=== PATIENT | female | born 1940 | race Two or more races ===

== ENCOUNTER 2017-05-05 15:01 | Inpatient (IN) | payer MEDICARE ==
[~2017-05-05] VITALS: Ht 157.5 cm; Wt 48.5 kg
[~2017-05-05 15:01] MED LIST: ALPRAZOLAM0.5 MG PO; AMBIEN5 MG ORAL; ATENOLOL25 MG ORAL; HARVONI 90-4001 EACH PO; OMEPRAZOLE40 M1 ORAL; TENORMIN100 MG ORAL
[2017-05-05] MEDS ORDERED: Tubing IV Cassette IV ONE (15:28)
--- NOTE | 2017-05-05 15:38 | Emergency Room Report ---
History of Present Illness General Chief Complaint: Abdominal Pain Source: Patient Present Illness HPI This patient is brought in at the request of her daughter. The patient states that last night she developed upper abdominal pain and had an episode of vomiting. She states that the symptoms have resolved. She currently has no complaints. She denies abdominal pain at this time. She states she has had normal bowel movements. She denies dysuria or hematuria. She denies fever or chills. She has not had nausea or vomiting today. She denies chest pain or shortness of breath. She has no other complaints. Allergies: Coded Allergies: No Known Allergies (Unverified , 04/07/16) Patient History Past Medical History: see triage record, HTN, other - Parkinsons Social History: Denies: alcohol use, drug use, smoking Now: No Reviewed Nursing Documentation: PMH: Agreed, PSxH: Agreed Nursing Documentation-PMH Hx Cardiac Problems: Yes - Hep. C Hx Hypertension: Yes Hx Pacemaker: No Hx Cancer: No Hx Gastrointestinal Problems: Yes Hx Neurological Problems: No Hx Neurologic Surgery: No Hx Brain Shunt: No Review of Systems All Other Systems: negative except mentioned in HPI Physical Exam Vital Signs Date Time Temp Pulse Resp B/P Pulse Ox O2 Delivery O2 Flow Rate FiO2 05/05/17 15:03 97.3 74 15 120/62 96 Room Air Sp02 EP Interpretation: reviewed, normal General Appearance: no apparent distress, alert, GCS 15, non-toxic Head: normocephalic, atraumatic Eyes: bilateral eye PERRL, bilateral eye normal inspection ENT: hearing grossly normal, normal pharynx, no angioedema, normal voice Neck: full range of motion, supple/symm/no masses Respiratory: chest non-tender, lungs clear, normal breath sounds, speaking full sentences Cardiovascular #1: regular rate, rhythm, no edema Gastrointestinal: normal bowel sounds, non tender, soft, non-distended, no guarding, no rebound Rectal: deferred Musculoskeletal: back normal, gait/station normal, normal range of motion, non- tender Neurologic: alert, oriented x3, responsive, motor strength/tone normal, sensory intact, speech normal Psychiatric: judgement/insight normal, memory normal, mood/affect normal, no suicidal/homicidal ideation Skin: normal color, no rash, warm/dry, well hydrated Medical Decision Making Diagnostic Impression: Primary Impression: Small bowel obstruction ER Course This patient presents with abdominal pain and episode of vomiting last night. Apparently, the patient hadn't eaten anything today and had resolution of her symptoms. However, I did obtain a CT of the abdomen and pelvis and her findings concerning for small bowel obstruction. There was some question that this could be an enteritis. The patient did have a small bowel obstruction 2 years ago and had to undergo surgical resection of the bowel. About a year ago she had a repeat episode that was treated conservatively. The son reports that she did have a colonoscopy since that time that was unremarkable. Regardless, an NG tube was placed to intermittent suction and the patient is admitted for further evaluation and treatment. Labs Test 05/05/17 15:20 05/05/17 15:30 Urine Color Pale yellow Urine Appearance Clear Urine pH 6 (4.5-8.0) Urine Specific [place] 1.010 (1.005-1.035) Urine Protein Negative (NEGATIVE) Urine Glucose (UA) Negative (NEGATIVE) Urine Ketones Negative (NEGATIVE) Urine Occult Blood 1+ (NEGATIVE) Urine Nitrite Negative (NEGATIVE) Urine Bilirubin Negative (NEGATIVE) Urine Urobilinogen Normal MG/DL (0.0-1.0) Urine Leukocyte Esterase 1+ (NEGATIVE) Urine RBC 2-4 /HPF (0 - 2) Urine WBC 0-2 /HPF (0 - 2) Urine Squamous Epithelial Cells Few /LPF (NONE/OCC) Urine Bacteria Few /HPF (NONE) White Blood Count 7.6 K/UL (4.8-10.8) Red Blood Count 4.33 M/UL (4.20-5.40) Hemoglobin 13.1 G/DL (12.0-16.0) Hematocrit 39.7 % (37.0-47.0) Mean Corpuscular Volume 92 FL (80-99) Mean Corpuscular Hemoglobin 30.2 PG (27.0-31.0) Mean Corpuscular Hemoglobin Concent 32.9 G/DL (32.0-36.0) Red Cell Distribution Width 11.8 % (11.6-14.8) Platelet Count 184 K/UL (150-450) Mean Platelet Volume 7.9 FL (6.5-10.1) Neutrophils (%) (Auto) 65.5 % (45.0-75.0) Lymphocytes (%) (Auto) 26.3 % (20.0-45.0) Monocytes (%) (Auto) 6.6 % (1.0-10.0) Eosinophils (%) (Auto) 0.9 % (0.0-3.0) Basophils (%) (Auto) 0.6 % (0.0-2.0) Sodium Level 136 mEQ/L (135-145) Potassium Level 4.0 mEQ/L (3.4-4.9) Chloride Level 96 mEQ/L (98-107) Carbon Dioxide Level 26 mEQ/L (20-30) Anion Gap 14 (5-15) Blood Urea Nitrogen 16 mg/dL (7-23) Creatinine 0.8 mg/dL (0.5-0.9) Estimat Glomerular Filtration Rate mL/min (>60) Glucose Level 114 mg/dL (74-106) Calcium Level 9.3 mg/dL (8.6-10.2) Total Bilirubin 0.4 mg/dL (0.0-1.2) Aspartate Amino Transf (AST/SGOT) 24 U/L (5-40) Alanine Aminotransferase (ALT/SGPT) 12 U/L (3-33) Alkaline Phosphatase 52 U/L (35-104) Troponin I < 0.30 ng/mL (<=0.30) Total Protein 7.7 g/dL (6.6-8.7) Albumin 4.5 g/dL (3.5-5.2) Globulin 3.2 g/dL Albumin/Globulin Ratio 1.4 (1.0-2.7) Lipase 14 U/L (< 60) EKG Diagnostic Results Rate: normal Rhythm: NSR ST Segments: no acute changes Rhythm Strip Diag. Results EP Interpretation: yes Rate: 70's Rhythm: NSR, no PVC's, no ectopy CT/MRI/US Diagnostic Results CT/MRI/US Diagnostic Results : Imaging Test Ordered: CT abd/pelvis Impression Impression: Focal dilated segment of small bowel in the left lower quadrant. Normal caliber distal small bowel. Findings most likely represents small bowel obstruction, possibly secondary to effusion. Segmental nature could also indicate a closed loop obstruction such as an internal hernia, although there are no other features to suggest is. However, given the associated small bowel wall thickening, findings could also represent focal area of enteritis. Correlate with clinical findings, consider followup abdominal radiographs as clinically indicated. Note that the extent and degree of small bowel dilatation is less than was demonstrated on the study of one year prior Trace free fluid in the pelvis. Not physiologic in a postmenopausal female, possibly related to the above Other findings as noted, including focal area of fatty infiltration of the liver , small left inguinal hernia, equivocal diverticulosis, posterior dependent pulmonary parenchymal atelectasis Last Vital Signs Date Time Temp Pulse Resp B/P Pulse Ox O2 Delivery O2 Flow Rate FiO2 05/05/17 15:03 97.3 74 15 120/62 96 Room Air Disposition: ADMITTED INPATIENT Condition: Serious COLICEASAROLARRY D.O. May 05, 2017 15:38
[2017-05-05 15:45] LABS: APPEARANCE,URINE CLEAR; KETONES,URINE NEGATIVE (NEGATIVE); LEUKOCYTE ESTERASE ,URINE 1+ (NEGATIVE); NITRITE,URINE NEGATIVE (NEGATIVE); PH,URINE 6 (4.5-8.0); PROTEIN,URINE NEGATIVE (NEGATIVE); UROBILINOGEN,URINE NORMAL MG/DL (0.0-1.0)
[2017-05-05 15:57] LABS: TROPONIN I < 0.30 ng/mL (<=0.30)
[2017-05-05 16:00] LABS: ALANINE AMINOTRANSFERASE 12 U/L (3-33); ALBUMIN/GLOBULIN RATIO 1.4 (1.0-2.7); ANION GAP 14 (5-15); ASPARTATE AMINO TRANSFERASE 24 U/L (5-40); CALCIUM 9.3 mg/dL (8.6-10.2); CARBON DIOXIDE 26 mEQ/L (20-30); CHLORIDE 96 mEQ/L (98-107); CREATININE 0.8 mg/dL (0.5-0.9); HEMOLYSIS 5; LIPASE 14 U/L (< 60); SODIUM 136 mEQ/L (135-145); TOTAL PROTEIN 7.7 g/dL (6.6-8.7)
[2017-05-05 16:16] LABS: BACTERIA,URINE FEW /HPF; SQUAMOUS EPITHELIAL CELL,UR FEW /LPF (NONE/OCC); WBC,URINE 0-2 /HPF (0 - 2)
[2017-05-05 16:55] LABS: BASOPHILS % (AUTO) 0.6 % (0.0-2.0); EOSINOPHILS % (AUTO) 0.9 % (0.0-3.0); LYMPHOCYTES % (AUTO) 26.3 % (20.0-45.0); MEAN CORPUSCULAR HEMOGLOBIN 30.2 PG (27.0-31.0); MEAN CORPUSCULAR HGB CONC 32.9 G/DL (32.0-36.0); MEAN CORPUSCULAR VOLUME 92 FL (80-99); MEAN PLATELET VOLUME 7.9 FL (6.5-10.1); MONOCYTES % (AUTO) 6.6 % (1.0-10.0); NEUTROPHILS % (AUTO) 65.5 % (45.0-75.0); PLATELET COUNT 184 K/UL (150-450); RED BLOOD COUNT 4.33 M/UL (4.20-5.40); RED CELL DISTRIBUTION WIDTH 11.8 % (11.6-14.8); WHITE BLOOD COUNT 7.6 K/UL (4.8-10.8)
[2017-05-05 17:00] VITALS: BP 161/68
--- NOTE | 2017-05-05 17:00 | Diagnostic Imaging Report ---
Clinical Indication: Abdominal pain Technique: No oral contrast utilized, per emergency room physician request IV administration nonionic contrast. Venous phase spiral acquisition obtained through the abdomen and pelvis. Multiplanar reconstructions were generated. Total dose length product 710 mGycm. CTDIvol(s) 15 mGy. Dose reduction achieved using automated exposure control Comparison: 04/07/2016 Findings: Lack of enteric contrast limits assessment of the GI tract. Small fat-containing left inguinal hernia is again demonstrated. Small amount of fluid is again demonstrated within the pelvis. There are equivocal scattered colonic diverticula. No evidence diverticulitis. There is a short segment of distended fluid-filled small bowel loops in the left lower quadrant. Transition to normal caliber distal small bowel is either in the left lower quadrant or lower midpelvis. There is mild wall thickening of the affected loops. The appendix is normal. No free intraperitoneal air. Distal esophagus, stomach, duodenum are unremarkable. The gallbladder is unremarkable. There is ectasia of the extrahepatic bile ducts again demonstrated, but with no downstream obstructive lesion evident. The liver demonstrate some focal fatty change in the usual location adjacent to the fissure for the ligamentum teres, is otherwise unremarkable. The pancreas, spleen, adrenals, kidneys are unremarkable. No mesenteric or retroperitoneal mass or adenopathy. The bladder is distended. No pelvic mass or adenopathy. The included lung bases are clear except for minimal posterior dependent atelectatic change. The bones are unremarkable. When compared to the previous study, the degree and extent of small bowel distention is decreased Impression: Focal dilated segment of small bowel in the left lower quadrant. Normal caliber distal small bowel. Findings most likely represents small bowel obstruction, possibly secondary to effusion. Segmental nature could also indicate a closed loop obstruction such as an internal hernia, although there are no other features to suggest is. However, given the associated small bowel wall thickening, findings could also represent focal area of enteritis. Correlate with clinical findings, consider followup abdominal radiographs as clinically indicated. Note that the extent and degree of small bowel dilatation is less than was demonstrated on the study of one year prior Trace free fluid in the pelvis. Not physiologic in a postmenopausal female, possibly related to the above Other findings as noted, including focal area of fatty infiltration of the liver, small left inguinal hernia, equivocal diverticulosis, posterior dependent pulmonary parenchymal atelectasis The CT scanner at [facility] is accredited by the [employer] and the scans are performed using protocols designed to limit radiation exposure to as low as reasonably achievable to attain images of sufficient resolution adequate for diagnostic evaluation.
[2017-05-05 18:00] VITALS: BP 142/65
[2017-05-05] MEDS ORDERED: VITAMIN B-12500 MCG ORAL (18:37)
[2017-05-05] MEDS ORDERED: SYMMETREL100 MG GT (19:44)
[2017-05-05 20:00] VITALS: BP 156/73
[2017-05-05 21:39] VITALS: BP 151/79
[2017-05-06] VITALS: BP 165/90
[2017-05-06] MEDS: D5NS 1,000 ML IV SCH ×2 (00:13→14:55)
[2017-05-06] MEDS: HYDROmorphone 1mg/ml Carpuject IVP PRN ×3 (00:15→17:49)
[2017-05-06 08:21] VITALS: BP 152/74
[2017-05-06 09:33] LABS: MEAN CORPUSCULAR HEMOGLOBIN 29.2 PG (27.0-31.0); MEAN CORPUSCULAR HGB CONC 32.7 G/DL (32.0-36.0); MEAN CORPUSCULAR VOLUME 90 FL (80-99); MEAN PLATELET VOLUME 8.5 FL (6.5-10.1); PLATELET COUNT 189 K/UL (150-450); RED BLOOD COUNT 4.91 M/UL (4.20-5.40); RED CELL DISTRIBUTION WIDTH 11.4 % (11.6-14.8); WHITE BLOOD COUNT 6.7 K/UL (4.8-10.8)
[2017-05-06 09:47] LABS: ANION GAP 15 (5-15); CALCIUM 9.1 mg/dL (8.6-10.2); CARBON DIOXIDE 24 mEQ/L (20-30); CHLORIDE 98 mEQ/L (98-107); CREATININE 0.6 mg/dL (0.5-0.9); HEMOLYSIS 2; POTASSIUM 3.6 mEQ/L (3.4-4.9); SODIUM 137 mEQ/L (135-145)
[2017-05-06] MEDS: ALPRAZolam 0.25mg tab ORAL SCH ×3 (10:00→18:52)
--- NOTE | 2017-05-06 10:21 | Diagnostic Imaging Report ---
Indications: Abdominal pain. Technique: AP view of the abdomen Findings: Comparison: 04/09/2016. Bowel gas pattern remains unremarkable. No abnormal calcific or soft tissue densities are demonstrated. Small osteophytes again noted at lumbar disc margins. Visualized skeletal structures remain otherwise unremarkable. Distal end of nasogastric tube overlies and is presumably within the stomach. IMPRESSION: No evidence of acute abdominopelvic disease, unchanged Interval nasogastric tube placement, in stomach.
[2017-05-06 10:31] LABS: BAND NEUTROPHILS % (MANUAL) 0 % (0-8); BASOPHILS % (MANUAL) 0 % (0-2); EOSINOPHILS % (MANUAL) 0 % (0-3); LYMPHOCYTES % (MANUAL) 13 % (20-45); NEUTROPHILS % (MANUAL) 84 % (45-75); PLATELET ESTIMATE ADEQUATE; PLATELET MORPHOLOGY NORMAL; TOTAL CELLS COUNTED 100
[2017-05-06 11:17] VITALS: BP 166/83
[2017-05-06] MEDS: Atenolol 25mg tab ORAL SCH (11:24)
[2017-05-06 15:53] VITALS: BP 168/72
--- NOTE | 2017-05-06 16:45 | History and Physical Report ---
DATE OF ADMISSION: 05/05/2017 HISTORY OF PRESENT ILLNESS: This is a 77-year-old female, who came to the hospital with abdominal pain. She also had emesis. The patient states she has a previous history of bowel obstruction in the past, it resolved spontaneously. She was seen and admitted through the emergency room. An NG tube was placed. Imaging studies showed evidence of a partial small bowel obstruction. The patient had reported she was having small formed stools and also was passing gas. PAST MEDICAL HISTORY: Notable for hypertension. She has had previous abdominal surgery. At this time, she is unable to tell me the nature of her previous surgery. Per review of old records, I note the patient was admitted to this hospital in March of 2016. At this point, she was noted to have evidence of a previous laparotomy sometime back in . She was seen by Dr. Noriega, the patient resolved with conservative management and was discharged. The patient's past history is otherwise unremarkable. She has a history of hypertension. MEDICATIONS: Summarized in chart. ALLERGIES: None. REVIEW OF SYSTEMS: The patient denies any headaches, hematemesis, melena, or hematochezia. PHYSICAL EXAMINATION: GENERAL: Reveals a 77-year-old female. HEENT: Unremarkable. CHEST: Shows clear breath sounds bilaterally. ABDOMEN: Soft. There is a midline laparotomy scar. Abdomen not distended. NG tube is in place. EXTREMITIES: There is no edema. NEUROLOGIC: Nonfocal. VITAL SIGNS: Blood pressure 150/70, heart rate is 74, respirations are 14, she is afebrile, and O2 saturation 100% on room air. LABORATORY AND DIAGNOSTIC DATA: His laboratory testing shows a normal CBC and BMP. Urinalysis is negative. Imaging studies obtained overnight. Abdominal and pelvis CT was done, which showed that she has small fat containing left inguinal hernia. There was a noted focal dilated segment of small bowel in the left lower quadrant. IMPRESSION: 1. Partial small bowel obstruction. 2. Previous laparotomy. 3. Hypertension. DISCUSSION: Admit to the hospital. We will consult general surgery as well as Gastroenterology. Keep NPO at this time. I will discontinue the NG tube. Start clear liquid diet. Continue IV fluids. DVT prophylaxis. We will follow carefully. Dioni Crowley M.D. DR: Rick JOB#: [id number] CC:
--- NOTE | 2017-05-06 17:27 | GI Initial Consult Note ---
RadhaMartha Hidalgooi N.P. 05/06/17 1727: History of Present Illness General Date patient seen: May 06, 2017 Time patient seen: 14:00 Reason for Hospitalization: Abdominal Pain Referring physician: KANDACE PELAYO Reason for Consultation: SBO Present Illness HPI This patient is brought in at the request of her daughter. The patient states that last night she developed upper abdominal pain and had an episode of vomiting. She states that the symptoms have resolved. She currently has no complaints. She denies abdominal pain at this time. She states she has had normal bowel movements. She denies dysuria or hematuria. She denies fever or chills. She has not had nausea or vomiting today. She denies chest pain or shortness of breath. She has no other complaints. GI CONSULT. HPI as noted. GI consulted for r/o SBO. Pt presents today with possible SBO shown on recent CT, see full report below. Patient is currently on clear liquid diet. Daughter at bedside stating that the patient has been passing gas. The patient has a history of abdominal surgeries for SBO revision with noted abdominal scar. CBC, LFTs unremarkable. Lipase, troponin negative. Unknown history of colonoscopy. Procedure: CT Abdomen Pelvis w/Contrast Clinical Indication: Abdominal pain Impression: Focal dilated segment of small bowel in the left lower quadrant. Normal caliber distal small bowel. Findings most likely represents small bowel obstruction, possibly secondary to effusion. Segmental nature could also indicate a closed loop obstruction such as an internal hernia, although there are no other features to suggest is. However, given the associated small bowel wall thickening, findings could also represent focal area of enteritis. Correlate with clinical findings, consider followup abdominal radiographs as clinically indicated. Note that the extent and degree of small bowel dilatation is less than was demonstrated on the study of one year prior Trace free fluid in the pelvis. Not physiologic in a postmenopausal female, possibly related to the above Other findings as noted, including focal area of fatty infiltration of the liver , small left inguinal hernia, equivocal diverticulosis, posterior dependent pulmonary parenchymal atelectasis. Home Meds Reported Medications Amantadine HCl (Amantadine) 100 Mg Capsule, 100 MG GT TWICE A DAY, CAP 05/05/17 Cyanocobalamin (Vitamin B-12)* (VITAMIN B-12*) 500 Mcg Tablet, 500 MCG ORAL DAILY 05/05/17 Atenolol* (TENORMIN*) 25 Mg Tablet, 25 MG ORAL DAILY, TAB 10/07/16 Alprazolam* (XANAX*) 0.5 Mg Tablet, 0.5 MG PO BEDTIME Y for For Anxiety, TAB 04/10/16 Omeprazole (OMEPRAZOLE) 40 Mg Capsule.dr, 40 MG ORAL DAILY, CAP 04/07/16 Discontinued Reported Medications Ledipasvir/Sofosbuvir (Harvoni 90-400 mg Tablet) 1 Each Tablet, 1 EACH PO, TAB 10/07/16 Zolpidem Tartrate* (AMBIEN*) 5 Mg Tablet, 5 MG ORAL BEDTIME Y for Insomnia, TAB 04/07/16 Atenolol (TENORMIN) 100 Mg Tablet, 50 MG ORAL DAILY, TAB 04/07/16 Med list reviewed/reconciled: Yes Allergies: Coded Allergies: No Known Allergies (Unverified , 04/07/16) Patient History History Provided By: Patient PMH Narrative Past Medical History: see triage record, HTN, other - Parkinsons Social History: Denies: alcohol use, drug use, smoking Now: No Reviewed Nursing Documentation: PMH: Agreed, PSxH: Agreed Nursing Documentation-PMH Hx Cardiac Problems: Yes - Hep. C Hx Hypertension: Yes Hx Pacemaker: No Hx Cancer: No Hx Gastrointestinal Problems: Yes Hx Neurological Problems: No Hx Neurologic Surgery: No Hx Brain Shunt: No Review of Systems All Other Systems: negative except mentioned in HPI Physical Exam Vital Signs Date Time Temp Pulse Resp B/P Pulse Ox O2 Delivery O2 Flow Rate FiO2 05/05/17 15:03 97.3 74 15 120/62 96 Room Air Sp02 EP Interpretation: reviewed Labs Laboratory Tests Test 05/06/17 09:15 White Blood Count 6.7 K/UL (4.8-10.8) Red Blood Count 4.91 M/UL (4.20-5.40) Hemoglobin 14.4 G/DL (12.0-16.0) Hematocrit 44.0 % (37.0-47.0) Mean Corpuscular Volume 90 FL (80-99) Mean Corpuscular Hemoglobin 29.2 PG (27.0-31.0) Mean Corpuscular Hemoglobin Concent 32.7 G/DL (32.0-36.0) Red Cell Distribution Width 11.4 % (11.6-14.8) L Platelet Count 189 K/UL (150-450) Mean Platelet Volume 8.5 FL (6.5-10.1) Neutrophils (%) (Auto) % (45.0-75.0) Lymphocytes (%) (Auto) % (20.0-45.0) Monocytes (%) (Auto) % (1.0-10.0) Eosinophils (%) (Auto) % (0.0-3.0) Basophils (%) (Auto) % (0.0-2.0) Differential Total Cells Counted 100 Neutrophils % (Manual) 84 % (45-75) H Lymphocytes % (Manual) 13 % (20-45) L Monocytes % (Manual) 3 % (1-10) Eosinophils % (Manual) 0 % (0-3) Basophils % (Manual) 0 % (0-2) Band Neutrophils 0 % (0-8) Platelet Estimate Adequate Platelet Morphology Normal Red Blood Cell Morphology Normal Sodium Level 137 mEQ/L (135-145) Potassium Level 3.6 mEQ/L (3.4-4.9) Chloride Level 98 mEQ/L (98-107) Carbon Dioxide Level 24 mEQ/L (20-30) Anion Gap 15 (5-15) Blood Urea Nitrogen 8 mg/dL (7-23) Creatinine 0.6 mg/dL (0.5-0.9) Estimat Glomerular Filtration Rate mL/min (>60) Glucose Level 156 mg/dL (74-106) H Calcium Level 9.1 mg/dL (8.6-10.2) General Appearance: well appearing, no apparent distress, alert Head: normocephalic EENT: normal ENT inspection Neck: supple Respiratory: normal breath sounds, no respiratory distress Cardiovascular: normal rate Gastrointestinal: normal inspection, non tender, soft, normal bowel sounds Rectal: deferred Genitourinary: no CVA tenderness Musculoskeletal: back normal Neurologic: normal inspection, alert, responsive Psychiatric: normal inspection, judgement/insight normal, memory normal Skin: normal inspection, normal color, no rash, warm/dry Lymphatic: normal inspection, no adenopathy Current Medications Current Medications Medications (Trade) Dose Ordered Sig/Leilani Route PRN Reason Start Time Stop Time Status Last Admin Dose Admin Acetaminophen (Tylenol) 650 mg Q4H PRN ORAL Mild Pain/Temp > 100.5 05/06/17 10:00 06/05/17 09:59 Alprazolam (Xanax) 0.25 mg THREE TIMES A DAY ORAL 05/06/17 10:00 05/13/17 09:59 05/06/17 14:47 Atenolol (Tenormin) 25 mg DAILY ORAL 05/06/17 11:00 06/05/17 10:59 05/06/17 11:24 Clonidine HCl (Catapres) 0.1 mg Q6H PRN ORAL For High Blood Pressure 05/06/17 14:00 06/05/17 13:59 05/06/17 14:15 Dextrose/Sodium Chloride (D5ns) 1,000 ml @ 75 mls/hr [id number] IV 05/05/17 23:15 06/04/17 23:14 05/06/17 14:55 Hydromorphone HCl 1 mg 1 mg Q4H PRN IVP For Pain 05/05/17 23:15 05/12/17 23:14 05/06/17 11:29 GI: Plan Problems: (1) Hx of abdominal surgery (2) Small bowel obstruction (3) Abdominal pain (4) Dehydration Plan APCT reviewed >> possible SBO IVF hydration + electrolyte replacement maintain CLD, NPO if patient has persistent vomiting ordered SB follow through study NGT dc'd today, consider reinsertion if GI decompression necessary pain mgmt ordered CEA fu labs will consider colonoscopy recommend surgical consultation given possible SBO Discussed with Dr. Potter. Thank you for referring this patient, we will follow. ARA POTTER 05/07/17 1006: History of Present Illness General Reason for Hospitalization: Abdominal Pain Present Illness Home Meds Reported Medications Amantadine HCl (Amantadine) 100 Mg Capsule, 100 MG GT TWICE A DAY, CAP 05/05/17 Cyanocobalamin (Vitamin B-12)* (VITAMIN B-12*) 500 Mcg Tablet, 500 MCG ORAL DAILY 05/05/17 Atenolol* (TENORMIN*) 25 Mg Tablet, 25 MG ORAL DAILY, TAB 10/07/16 Alprazolam* (XANAX*) 0.5 Mg Tablet, 0.5 MG PO BEDTIME Y for For Anxiety, TAB 04/10/16 Omeprazole (OMEPRAZOLE) 40 Mg Capsule., 40 MG ORAL DAILY, CAP 04/07/16 Discontinued Reported Medications Ledipasvir/Sofosbuvir (Harvoni 90-400 mg Tablet) 1 Each Tablet, 1 EACH PO, TAB 10/07/16 Zolpidem Tartrate* (AMBIEN*) 5 Mg Tablet, 5 MG ORAL BEDTIME Y for Insomnia, TAB 04/07/16 Atenolol (TENORMIN) 100 Mg Tablet, 50 MG ORAL DAILY, TAB 04/07/16 Allergies: Coded Allergies: No Known Allergies (Unverified , 04/07/16) GI: Plan Plan The patient was seen and examined at bedside and all new and available data was reviewed in the patients chart. I agree with the above findings, impression and plan. (Patient seen earlier today. Signature stamp does not reflect patient encounter time.). -Martha Johnson MD, N.P. May 06, 2017 17:27 ARA POTTER May 07, 2017 10:06
--- NOTE | 2017-05-06 18:13 | Cardiology Report ---
APPROVED REPORT EKG Measurement Heart [id number] Normal sinus rhythm Normal ECG
[2017-05-06 18:45] VITALS: BP 132/72
[2017-05-06 20:00] VITALS: BP 147/85
[2017-05-07] VITALS: BP 126/72
[2017-05-07] MEDS: HYDROmorphone 1mg/ml Carpuject IVP PRN ×4 (00:57→15:47)
[2017-05-07] MEDS: D5NS 1,000 ML IV SCH ×2 (00:58→15:46)
[2017-05-07 04:00] VITALS: BP 136/78
[2017-05-07 06:38] LABS: BASOPHILS % (AUTO) 0.8 % (0.0-2.0); LYMPHOCYTES % (AUTO) 26.5 % (20.0-45.0); MEAN CORPUSCULAR HEMOGLOBIN 29.9 PG (27.0-31.0); MEAN CORPUSCULAR HGB CONC 33.4 G/DL (32.0-36.0); MEAN CORPUSCULAR VOLUME 89 FL (80-99); MEAN PLATELET VOLUME 8.6 FL (6.5-10.1); MONOCYTES % (AUTO) 7.9 % (1.0-10.0); NEUTROPHILS % (AUTO) 63.9 % (45.0-75.0); PLATELET COUNT 184 K/UL (150-450); RED CELL DISTRIBUTION WIDTH 11.7 % (11.6-14.8); WHITE BLOOD COUNT 7.3 K/UL (4.8-10.8)
[2017-05-07 06:54] LABS: ALANINE AMINOTRANSFERASE 10 U/L (3-33); ALBUMIN/GLOBULIN RATIO 1.3 (1.0-2.7); ANION GAP 11 (5-15); ASPARTATE AMINO TRANSFERASE 19 U/L (5-40); CALCIUM 8.4 mg/dL (8.6-10.2); CARBON DIOXIDE 26 mEQ/L (20-30); CHLORIDE 99 mEQ/L (98-107); CREATININE 0.5 mg/dL (0.5-0.9); HEMOLYSIS 5; MAGNESIUM 1.7 mg/dL (1.7-2.5); PHOSPHORUS 2.1 mg/dL (2.5-4.8); POTASSIUM 3.8 mEQ/L (3.4-4.9); SODIUM 136 mEQ/L (135-145); TOTAL PROTEIN 6.5 g/dL (6.6-8.7)
[2017-05-07 08:00] VITALS: BP 159/76
--- NOTE | 2017-05-07 08:20 | Pulmonology Progress Note ---
Assessment/Plan Assessment/Plan IMPRESSION: 1. Partial small bowel obstruction. 2. Previous laparotomy. 3. Hypertension. DISCUSSION: Gastroenterology consult noted. Keep NPO at this time. Await UGI series. Continue IV fluids. DVT prophylaxis. I will follow carefully. Subjective Interval Events: Tolerated clear liquids yesterday; no BM yet Constitutional: Reports: no symptoms HEENT: Repors: no symptoms Respiratory: Reports: no symptoms Cardiovascular: Reports: no symptoms Gastrointestinal/Abdominal: Reports: constipation Genitourinary: Reports: no symptoms Neurologic: Reports: no symptoms Allergies: Coded Allergies: No Known Allergies (Unverified , 04/07/16) Objective Last 24 Hour Vital Signs Date Time Temp Pulse Resp B/P Pulse Ox O2 Delivery O2 Flow Rate FiO2 05/07/17 04:00 98.8 69 20 136/78 96 Room Air 05/07/17 00:00 97.9 68 20 126/72 96 Room Air 05/06/17 20:00 96.6 67 20 147/85 99 Room Air 05/06/17 18:45 62 16 132/72 98 Room Air 05/06/17 15:53 97.0 73 16 168/72 99 Room Air 05/06/17 14:15 168/79 05/06/17 11:24 99 166/83 05/06/17 11:17 97.7 75 16 166/83 99 Room Air 05/06/17 08:21 98.2 71 14 152/74 100 Room Air Intake and Output 05/06/17 05/07/17 19:00 07:00 Intake Total 1900 ml 825 ml Balance 1900 ml 825 ml Intake Oral 1000 ml IV Total 900 ml 825 ml # Voids 4 1 General Appearance: no acute distress HEENT: normocephalic Respiratory/Chest: chest wall non-tender, lungs clear Cardiovascular: normal peripheral pulses, normal rate Abdomen: soft, non tender, no organomegaly, non distended, no mass Extremities: no cyanosis Laboratory Tests 05/06/17 09:15: White Blood Count 6.7, Red Blood Count 4.91, Hemoglobin 14.4, Hematocrit 44.0, Mean Corpuscular Volume 90, Mean Corpuscular Hemoglobin 29.2, Mean Corpuscular Hemoglobin Concent 32.7, Red Cell Distribution Width 11.4L, Platelet Count 189, Mean Platelet Volume 8.5, Neutrophils (%) (Auto) , Lymphocytes (%) (Auto) , Monocytes (%) (Auto) , Eosinophils (%) (Auto) , Basophils (%) (Auto) , Differential Total Cells Counted 100, Neutrophils % (Manual) 84H, Lymphocytes % (Manual) 13L, Monocytes % (Manual) 3, Eosinophils % (Manual) 0, Basophils % ( Manual) 0, Band Neutrophils 0, Platelet Estimate Adequate, Platelet Morphology Normal, Red Blood Cell Morphology Normal, Sodium Level 137, Potassium Level 3.6 , Chloride Level 98, Carbon Dioxide Level 24, Anion Gap 15, Blood Urea Nitrogen 8, Creatinine 0.6, Estimat Glomerular Filtration Rate , Glucose Level 156H, Calcium Level 9.1 05/07/17 05:10: White Blood Count 7.3, Red Blood Count 4.30, Hemoglobin 12.9, Hematocrit 38.4, Mean Corpuscular Volume 89, Mean Corpuscular Hemoglobin 29.9, Mean Corpuscular Hemoglobin Concent 33.4, Red Cell Distribution Width 11.7, Platelet Count 184, Mean Platelet Volume 8.6, Neutrophils (%) (Auto) 63.9, Lymphocytes (%) (Auto) 26.5, Monocytes (%) (Auto) 7.9, Eosinophils (%) (Auto) 1.0, Basophils (%) (Auto ) 0.8, Sodium Level 136, Potassium Level 3.8, Chloride Level 99, Carbon Dioxide Level 26, Anion Gap 11, Blood Urea Nitrogen 7, Creatinine 0.5, Estimat Glomerular Filtration Rate , Glucose Level 113H, Calcium Level 8.4L, Phosphorus Level 2.1L, Magnesium Level 1.7, Total Bilirubin 0.4, Aspartate Amino Transf ( AST/SGOT) 19, Alanine Aminotransferase (ALT/SGPT) 10, Alkaline Phosphatase 48, Total Protein 6.5L, Albumin 3.7, Globulin 2.8, Albumin/Globulin Ratio 1.3, Carcinoembryonic Antigen 1.2 Current Medications Medications (Trade) Dose Ordered Sig/Leilani Route PRN Reason Start Time Stop Time Status Last Admin Dose Admin Acetaminophen (Tylenol) 650 mg Q4H PRN ORAL Mild Pain/Temp > 100.5 05/06/17 10:00 06/05/17 09:59 Alprazolam (Xanax) 0.25 mg THREE TIMES A DAY ORAL 05/06/17 10:00 05/13/17 09:59 05/06/17 18:52 Atenolol (Tenormin) 25 mg DAILY ORAL 05/06/17 11:00 06/05/17 10:59 05/06/17 11:24 Clonidine HCl (Catapres) 0.1 mg Q6H PRN ORAL For High Blood Pressure 05/06/17 14:00 06/05/17 13:59 05/06/17 14:15 Dextrose/Sodium Chloride (D5ns) 1,000 ml @ 75 mls/hr [id number] IV 05/05/17 23:15 06/04/17 23:14 05/07/17 00:58 Hydromorphone HCl 1 mg 1 mg Q4H PRN IVP For Pain 05/05/17 23:15 05/12/17 23:14 05/07/17 05:37 Dioni Crowley MD May 07, 2017 08:20
[2017-05-07] MEDS: Atenolol 25mg tab ORAL SCH ×2 (09:00→11:28)
[2017-05-07] MEDS: ALPRAZolam 0.25mg tab ORAL SCH ×3 (09:00→18:44)
[2017-05-07 12:00] VITALS: BP 143/77
--- NOTE | 2017-05-07 12:00 | GI Progress Note ---
Assessment/Plan Problems: (1) Severe malnutrition ICD Codes: E43 - Unspecified severe protein-calorie malnutrition SNOMED: 48247352 (2) Small bowel obstruction ICD Codes: K56.69 - Other intestinal obstruction SNOMED: 590794270 (3) Dehydration ICD Codes: E86.0 - Dehydration SNOMED: 98914276 (4) Abdominal pain ICD Codes: R10.9 - Unspecified abdominal pain SNOMED: 23544280 Status: unchanged Status Narrative Discussed with Dr. Linton. Assessment/Plan APCT reviewed >> possible SBO IVF hydration + electrolyte replacement NGT dc'd today, consider reinsertion if GI decompression necessary maintain CLD, NPO if patient has persistent vomiting. fu SB follow through study pain mgmt ordered CEA fu labs will consider colonoscopy in future recommend surgical consultation given possible SBO Subjective Gastrointestinal/Abdominal: Reports: abdominal pain, nausea Subjective DC Objective Last 24 Hour Vital Signs Date Time Temp Pulse Resp B/P Pulse Ox O2 Delivery O2 Flow Rate FiO2 05/07/17 11:28 72 160/76 05/07/17 08:00 97.2 71 20 159/76 98 Room Air 05/07/17 04:00 98.8 69 20 136/78 96 Room Air 05/07/17 00:00 97.9 68 20 126/72 96 Room Air 05/06/17 20:00 96.6 67 20 147/85 99 Room Air 05/06/17 18:45 62 16 132/72 98 Room Air 05/06/17 15:53 97.0 73 16 168/72 99 Room Air 05/06/17 14:15 168/79 Intake and Output 05/06/17 05/07/17 19:00 07:00 Intake Total 1900 ml 825 ml Balance 1900 ml 825 ml Intake Oral 1000 ml IV Total 900 ml 825 ml # Voids 4 1 Laboratory Tests Test 05/07/17 05:10 White Blood Count 7.3 K/UL (4.8-10.8) Red Blood Count 4.30 M/UL (4.20-5.40) Hemoglobin 12.9 G/DL (12.0-16.0) Hematocrit 38.4 % (37.0-47.0) Mean Corpuscular Volume 89 FL (80-99) Mean Corpuscular Hemoglobin 29.9 PG (27.0-31.0) Mean Corpuscular Hemoglobin Concent 33.4 G/DL (32.0-36.0) Red Cell Distribution Width 11.7 % (11.6-14.8) Platelet Count 184 K/UL (150-450) Mean Platelet Volume 8.6 FL (6.5-10.1) Neutrophils (%) (Auto) 63.9 % (45.0-75.0) Lymphocytes (%) (Auto) 26.5 % (20.0-45.0) Monocytes (%) (Auto) 7.9 % (1.0-10.0) Eosinophils (%) (Auto) 1.0 % (0.0-3.0) Basophils (%) (Auto) 0.8 % (0.0-2.0) Sodium Level 136 mEQ/L (135-145) Potassium Level 3.8 mEQ/L (3.4-4.9) Chloride Level 99 mEQ/L (98-107) Carbon Dioxide Level 26 mEQ/L (20-30) Anion Gap 11 (5-15) Blood Urea Nitrogen 7 mg/dL (7-23) Creatinine 0.5 mg/dL (0.5-0.9) Estimat Glomerular Filtration Rate mL/min (>60) Glucose Level 113 mg/dL (74-106) H Calcium Level 8.4 mg/dL (8.6-10.2) L Phosphorus Level 2.1 mg/dL (2.5-4.8) L Magnesium Level 1.7 mg/dL (1.7-2.5) Total Bilirubin 0.4 mg/dL (0.0-1.2) Aspartate Amino Transf (AST/SGOT) 19 U/L (5-40) Alanine Aminotransferase (ALT/SGPT) 10 U/L (3-33) Alkaline Phosphatase 48 U/L (35-104) Total Protein 6.5 g/dL (6.6-8.7) L Albumin 3.7 g/dL (3.5-5.2) Globulin 2.8 g/dL Albumin/Globulin Ratio 1.3 (1.0-2.7) Carcinoembryonic Antigen 1.2 ng/mL Height (Feet): 5 Height (Inches): 2.00 Weight (Pounds): 107 General Appearance: no apparent distress, alert Cardiovascular: normal rate Respiratory/Chest: chest wall non-tender, lungs clear, normal breath sounds, no respiratory distress Abdominal Exam: normal bowel sounds, non tender, soft Martha Garcia N.P. May 07, 2017 12:00
[2017-05-07] MEDS ORDERED: Sodium Phosphate 30 MM in NS 275 ML IVPB ONE (14:00)
--- NOTE | 2017-05-07 15:23 | Diagnostic Imaging Report ---
Indications: Headache Technique: Spiral acquisitions obtained through the brain. Angled axial and coronal 5 x 5 mm slices were reconstructed. Total dose length product 1291 mGycm. CTDI vol(s) 70 mGy. Dose reduction achieved using automated exposure control Comparison: 10/07/2016 Findings: There is very mild age-related enlargement of ventricles and extra axial CSF spaces. Old deep white matter infarct is seen in the right parietal deep white matter. No acute hemorrhage or edema. No mass effect nor midline shift. Normal baltazar-white differentiation. Visualized orbits and sinuses are unremarkable. Intact calvarium. Equivocally somewhat hypoplastic right mandibular head. 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 is accredited by the [employer] and the scans are performed using protocols designed to limit radiation exposure to as low as reasonably achievable to attain images of sufficient resolution adequate for diagnostic evaluation.
[2017-05-07 16:00] VITALS: BP 165/71
--- NOTE | 2017-05-07 16:43 | Diagnostic Imaging Report ---
Indication: PAIN neck stiffness Technique: Spiral acquisitions obtained through the cervical spine. No IV contrast utilized. Multiplanar reconstructions were generated. Total dose length product 216 mGycm. CTDIvol(s) in mGy. Dose reduction achieved using automated exposure control Comparison: 10/07/2016 Findings: There is slight exaggeration of the normal cervical lordosis, otherwise normal bony alignment. No evidence of acute fracture. No dislocation. Vertebral body heights are preserved. The disc spaces are preserved. 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 There is multilevel facet degeneration. However, no significant disc bulging or protrusion, spinal stenosis, or neural foraminal stenosis is evident. There is minimal pleural and parenchymal scarring of the bilateral lung apices. The included extraspinal soft tissues are otherwise unremarkable. When compared to the previous study, findings are unchanged Impression: Mild facet degeneration, also reported on prior September 2016 exam No acute or significant abnormality otherwise Note effusion, likely congenital, of the right C2-[address] scanner at [facility] is accredited by the [employer] and the scans are performed using protocols designed to limit radiation exposure to as low as reasonably achievable to attain images of sufficient resolution adequate for diagnostic evaluation.
--- NOTE | 2017-05-07 16:44 | Diagnostic Imaging Report ---
Indication: Abdominal distention, abnormal recent CT scan Technique: Patient ingested water-soluble contrast. Serial overhead films obtained. Spot images obtained of the right lower quadrant. Total fluoroscopy time one minute. Total dose area product 32 dGycm2 Comparison: Abdominal radiograph of 05/06/2017 Findings: Emergency Management Specialist image demonstrates unremarkable bowel gas pattern. No unusual masses or calcifications. Previously demonstrated nasogastric tube has been removed There is brisk progression of contrast through the colon. Contrast is likely seen within the cecum at 45 minutes, definitely throughout the ascending colon at one hour. Normal caliber small bowel. Normal mucosal pattern. Grossly normal stomach. Spot films in the region of the terminal ileum do not definitely identify the terminal ileum, due to considerable redundancy an overlap of bowel loops in this area Impression: Unremarkable small bowel study. No evidence of small bowel distention or other findings to suggest small bowel obstruction. In fact, transit of contrast is unusually rapid, with contrast reaching the colon by 45 minutes
[2017-05-07 20:00] VITALS: BP 153/93
[2017-05-08] VITALS: BP_SYST 153; BP_SYST 168; BP_DIAS 87; BP_DIAS 93
[2017-05-08 04:00] VITALS: BP 146/65
[2017-05-08] MEDS: D5NS 1,000 ML IV SCH (04:35)
[2017-05-08 06:44] LABS: ANION GAP 15 (5-15); CALCIUM 8.2 mg/dL (8.6-10.2); CARBON DIOXIDE 25 mEQ/L (20-30); CHLORIDE 98 mEQ/L (98-107); CREATININE 0.5 mg/dL (0.5-0.9); HEMOLYSIS 2; PHOSPHORUS 3.2 mg/dL (2.5-4.8); POTASSIUM 2.9 mEQ/L (3.4-4.9); SODIUM 138 mEQ/L (135-145)
[2017-05-08 07:03] LABS: BASOPHILS % (AUTO) 1.2 % (0.0-2.0); EOSINOPHILS % (AUTO) 1.5 % (0.0-3.0); MEAN CORPUSCULAR HEMOGLOBIN 30.7 PG (27.0-31.0); MEAN CORPUSCULAR HGB CONC 34.7 G/DL (32.0-36.0); MEAN CORPUSCULAR VOLUME 88 FL (80-99); MEAN PLATELET VOLUME 9.2 FL (6.5-10.1); MONOCYTES % (AUTO) 8.7 % (1.0-10.0); NEUTROPHILS % (AUTO) 52.5 % (45.0-75.0); PLATELET COUNT 174 K/UL (150-450); RED BLOOD COUNT 4.33 M/UL (4.20-5.40); RED CELL DISTRIBUTION WIDTH 11.5 % (11.6-14.8); WHITE BLOOD COUNT 5.4 K/UL (4.8-10.8)
[2017-05-08 08:00] VITALS: BP 141/69
[2017-05-08] MEDS: Atenolol 25mg tab ORAL SCH (08:31)
[2017-05-08] MEDS: ALPRAZolam 0.25mg tab ORAL SCH ×3 (08:31→18:02)
--- NOTE | 2017-05-08 10:07 | Pulmonology Progress Note ---
Assessment/Plan Assessment/Plan IMPRESSION: 1. Partial small bowel obstruction. Resolved. SBFT is normal 2. Previous laparotomy. 3. Hypertension. 4. Headache. Head CT and cervical spine CT negative DISCUSSION: Gastroenterology consult noted. Advance to full liquids. Continue IV fluids. DVT prophylaxis. Replace K DC home in AM Subjective Interval Events: Better; reporting diarrhea. K 2.9 Constitutional: Reports: no symptoms HEENT: Repors: no symptoms Respiratory: Reports: no symptoms Cardiovascular: Reports: no symptoms Gastrointestinal/Abdominal: Reports: diarrhea Genitourinary: Reports: no symptoms Neurologic: Reports: no symptoms Allergies: Coded Allergies: No Known Allergies (Unverified , 04/07/16) Objective Last 24 Hour Vital Signs Date Time Temp Pulse Resp B/P Pulse Ox O2 Delivery O2 Flow Rate FiO2 05/08/17 08:31 57 146/65 05/08/17 04:00 97.7 57 18 146/65 99 Room Air 05/08/17 00:20 168/87 05/08/17 00:00 98.1 68 18 168/87 98 Room Air 05/08/17 00:00 98.1 71 18 153/93 98 Room Air 05/07/17 20:00 98.1 71 18 153/93 98 Room Air 05/07/17 16:08 164/82 05/07/17 16:00 97.3 79 20 165/71 99 Room Air 05/07/17 12:00 97.5 69 20 143/77 95 Room Air 05/07/17 11:28 72 160/76 Intake and Output 05/07/17 05/08/17 19:00 07:00 Intake Total 745.0 ml 960 ml Balance 745.0 ml 960 ml Intake Oral 200 ml 360 ml IV Total 545.0 ml 600 ml # Voids 8 4 General Appearance: no acute distress HEENT: normocephalic Respiratory/Chest: chest wall non-tender, lungs clear Cardiovascular: normal peripheral pulses, normal rate Abdomen: normal bowel sounds, soft, non tender, no organomegaly, non distended Extremities: no cyanosis Microbiology Date/Time Source Procedure Growth Status 05/06/17 07:20 Rectum VRE Culture - Final NO VANCOMYCIN RESISTANT ENTEROCOCCUS ... Complete Laboratory Tests 05/08/17 05:10: White Blood Count 5.4, Red Blood Count 4.33, Hemoglobin 13.3, Hematocrit 38.3, Mean Corpuscular Volume 88, Mean Corpuscular Hemoglobin 30.7, Mean Corpuscular Hemoglobin Concent 34.7, Red Cell Distribution Width 11.5L, Platelet Count 174, Mean Platelet Volume 9.2, Neutrophils (%) (Auto) 52.5, Lymphocytes (%) (Auto) 36.0, Monocytes (%) (Auto) 8.7, Eosinophils (%) (Auto) 1.5, Basophils (%) (Auto ) 1.2, Sodium Level 138, Potassium Level 2.9L, Chloride Level 98, Carbon Dioxide Level 25, Anion Gap 15, Blood Urea Nitrogen 5L, Creatinine 0.5, Estimat Glomerular Filtration Rate , Glucose Level 106, Calcium Level 8.2L, Phosphorus Level 3.2 Current Medications Medications (Trade) Dose Ordered Sig/Leilani Route PRN Reason Start Time Stop Time Status Last Admin Dose Admin Acetaminophen (Tylenol) 650 mg Q4H PRN ORAL Mild Pain/Temp > 100.5 05/06/17 10:00 06/05/17 09:59 Alprazolam (Xanax) 0.25 mg THREE TIMES A DAY ORAL 05/06/17 10:00 05/13/17 09:59 05/08/17 08:31 Atenolol (Tenormin) 25 mg DAILY ORAL 05/06/17 11:00 06/05/17 10:59 05/08/17 08:31 Clonidine HCl (Catapres) 0.1 mg Q6H PRN ORAL For High Blood Pressure 05/06/17 14:00 06/05/17 13:59 05/08/17 00:20 Dextrose/Sodium Chloride (D5ns) 1,000 ml @ 75 mls/hr [id number] IV 05/05/17 23:15 06/04/17 23:14 05/07/17 15:46 Hydromorphone HCl 1 mg 1 mg Q4H PRN IVP For Pain 05/05/17 23:15 05/12/17 23:14 05/07/17 15:47 Dioni Crowley MD May 08, 2017 10:07
--- NOTE | 2017-05-08 11:13 | GI Progress Note ---
Assessment/Plan Problems: (1) Severe malnutrition ICD Codes: E43 - Unspecified severe protein-calorie malnutrition SNOMED: 91271813 (2) Small bowel obstruction ICD Codes: K56.69 - Other intestinal obstruction SNOMED: 191591559 (3) Dehydration ICD Codes: E86.0 - Dehydration SNOMED: 84094976 (4) Abdominal pain ICD Codes: R10.9 - Unspecified abdominal pain SNOMED: 89005918 Status: stable, progressing Status Narrative Discussed with Dr. Linton. Assessment/Plan APCT reviewed >> possible SBO SBFT reviewed >> unremarkable CEA unremarkable Head / Spine CT unremarkable adv diet pain mgmt fu labs outpatient colonoscopy Subjective Subjective DC improved passing gas BM this morning Objective Last 24 Hour Vital Signs Date Time Temp Pulse Resp B/P Pulse Ox O2 Delivery O2 Flow Rate FiO2 05/08/17 08:31 57 146/65 05/08/17 04:00 97.7 57 18 146/65 99 Room Air 05/08/17 00:20 168/87 05/08/17 00:00 98.1 68 18 168/87 98 Room Air 05/08/17 00:00 98.1 71 18 153/93 98 Room Air 05/07/17 20:00 98.1 71 18 153/93 98 Room Air 05/07/17 16:08 164/82 05/07/17 16:00 97.3 79 20 165/71 99 Room Air 05/07/17 12:00 97.5 69 20 143/77 95 Room Air 05/07/17 11:28 72 160/76 Intake and Output 05/07/17 05/08/17 19:00 07:00 Intake Total 745.0 ml 960 ml Balance 745.0 ml 960 ml Intake Oral 200 ml 360 ml IV Total 545.0 ml 600 ml # Voids 8 4 Laboratory Tests Test 05/08/17 05:10 White Blood Count 5.4 K/UL (4.8-10.8) Red Blood Count 4.33 M/UL (4.20-5.40) Hemoglobin 13.3 G/DL (12.0-16.0) Hematocrit 38.3 % (37.0-47.0) Mean Corpuscular Volume 88 FL (80-99) Mean Corpuscular Hemoglobin 30.7 PG (27.0-31.0) Mean Corpuscular Hemoglobin Concent 34.7 G/DL (32.0-36.0) Red Cell Distribution Width 11.5 % (11.6-14.8) L Platelet Count 174 K/UL (150-450) Mean Platelet Volume 9.2 FL (6.5-10.1) Neutrophils (%) (Auto) 52.5 % (45.0-75.0) Lymphocytes (%) (Auto) 36.0 % (20.0-45.0) Monocytes (%) (Auto) 8.7 % (1.0-10.0) Eosinophils (%) (Auto) 1.5 % (0.0-3.0) Basophils (%) (Auto) 1.2 % (0.0-2.0) Sodium Level 138 mEQ/L (135-145) Potassium Level 2.9 mEQ/L (3.4-4.9) L Chloride Level 98 mEQ/L (98-107) Carbon Dioxide Level 25 mEQ/L (20-30) Anion Gap 15 (5-15) Blood Urea Nitrogen 5 mg/dL (7-23) L Creatinine 0.5 mg/dL (0.5-0.9) Estimat Glomerular Filtration Rate mL/min (>60) Glucose Level 106 mg/dL (74-106) Calcium Level 8.2 mg/dL (8.6-10.2) L Phosphorus Level 3.2 mg/dL (2.5-4.8) Height (Feet): 5 Height (Inches): 2.00 Weight (Pounds): 107 General Appearance: no apparent distress, alert, thin Cardiovascular: normal rate Respiratory/Chest: normal breath sounds, no respiratory distress Abdominal Exam: normal bowel sounds, non tender, soft Extremities: normal range of motion Martha Garcia N.P. May 08, 2017 11:13
[2017-05-08 12:00] VITALS: BP 139/63
[2017-05-08 16:00] VITALS: BP 125/76
[2017-05-08 20:36] VITALS: BP 137/75
[2017-05-09 00:34] VITALS: BP 164/89
[2017-05-09 04:47] VITALS: BP 154/82
[2017-05-09 07:08] LABS: ANION GAP 14 (5-15); CARBON DIOXIDE 26 mEQ/L (20-30); CHLORIDE 97 mEQ/L (98-107); CREATININE 0.7 mg/dL (0.5-0.9); HEMOLYSIS 5; SODIUM 137 mEQ/L (135-145)
[2017-05-09 07:12] LABS: BASOPHILS % (AUTO) 1.7 % (0.0-2.0); EOSINOPHILS % (AUTO) 2.5 % (0.0-3.0); MEAN CORPUSCULAR HEMOGLOBIN 30.6 PG (27.0-31.0); MEAN CORPUSCULAR HGB CONC 33.6 G/DL (32.0-36.0); MEAN CORPUSCULAR VOLUME 91 FL (80-99); MEAN PLATELET VOLUME 7.8 FL (6.5-10.1); MONOCYTES % (AUTO) 6.9 % (1.0-10.0); NEUTROPHILS % (AUTO) 47.9 % (45.0-75.0); PLATELET COUNT 168 K/UL (150-450); RED BLOOD COUNT 4.44 M/UL (4.20-5.40); RED CELL DISTRIBUTION WIDTH 11.5 % (11.6-14.8); WHITE BLOOD COUNT 7.9 K/UL (4.8-10.8)
[2017-05-09 08:13] VITALS: BP 126/69
[2017-05-09] MEDS: ALPRAZolam 0.25mg tab ORAL SCH ×2 (08:42→13:49)
[2017-05-09] MEDS: Atenolol 25mg tab ORAL SCH (08:42)
--- NOTE | 2017-05-09 10:40 | GI Progress Note ---
Assessment/Plan Problems: (1) Severe malnutrition ICD Codes: E43 - Unspecified severe protein-calorie malnutrition SNOMED: 85381585 (2) Small bowel obstruction ICD Codes: K56.69 - Other intestinal obstruction SNOMED: 074037018 (3) Dehydration ICD Codes: E86.0 - Dehydration SNOMED: 38120749 (4) Abdominal pain ICD Codes: R10.9 - Unspecified abdominal pain SNOMED: 48496163 Status: stable Status Narrative Discussed with Dr. Linton. Assessment/Plan SBFT reviewed >> unremarkable CEA unremarkable Head / Spine CT unremarkable ok for DC per GI standpoint adv diet pain mgmt fu labs patient had colonoscopy approximately 2 years ago fu PCP Subjective Subjective DC resolved passing gas BM yesterday abdominal pain greatly improved ready to go home Objective Last 24 Hour Vital Signs Date Time Temp Pulse Resp B/P Pulse Ox O2 Delivery O2 Flow Rate FiO2 05/09/17 08:42 79 126/69 05/09/17 08:13 97.2 79 16 126/69 100 Room Air 05/09/17 04:47 97.3 67 20 154/82 97 Room Air 05/09/17 00:34 98.2 76 20 164/89 97 Room Air 05/08/17 20:36 97.9 73 20 137/75 90 Room Air 05/08/17 16:00 97.3 74 18 125/76 99 Room Air 05/08/17 12:00 98.2 61 17 139/63 98 Room Air Intake and Output 05/08/17 05/09/17 19:00 07:00 Intake Total 785 ml 550 ml Balance 785 ml 550 ml Intake Oral 360 ml IV Total 425 ml 550 ml # Voids 2 3 # Bowel Movements 2 Laboratory Tests Test 05/09/17 05:25 White Blood Count 7.9 K/UL (4.8-10.8) Red Blood Count 4.44 M/UL (4.20-5.40) Hemoglobin 13.6 G/DL (12.0-16.0) Hematocrit 40.4 % (37.0-47.0) Mean Corpuscular Volume 91 FL (80-99) Mean Corpuscular Hemoglobin 30.6 PG (27.0-31.0) Mean Corpuscular Hemoglobin Concent 33.6 G/DL (32.0-36.0) Red Cell Distribution Width 11.5 % (11.6-14.8) L Platelet Count 168 K/UL (150-450) Mean Platelet Volume 7.8 FL (6.5-10.1) Neutrophils (%) (Auto) 47.9 % (45.0-75.0) Lymphocytes (%) (Auto) 41.0 % (20.0-45.0) Monocytes (%) (Auto) 6.9 % (1.0-10.0) Eosinophils (%) (Auto) 2.5 % (0.0-3.0) Basophils (%) (Auto) 1.7 % (0.0-2.0) Sodium Level 137 mEQ/L (135-145) Potassium Level 4.0 mEQ/L (3.4-4.9) Chloride Level 97 mEQ/L (98-107) L Carbon Dioxide Level 26 mEQ/L (20-30) Anion Gap 14 (5-15) Blood Urea Nitrogen 8 mg/dL (7-23) Creatinine 0.7 mg/dL (0.5-0.9) Estimat Glomerular Filtration Rate mL/min (>60) Glucose Level 92 mg/dL (74-106) Calcium Level 9.0 mg/dL (8.6-10.2) Height (Feet): 5 Height (Inches): 2.00 Weight (Pounds): 107 General Appearance: no apparent distress, alert Cardiovascular: normal rate Respiratory/Chest: normal breath sounds, no respiratory distress Abdominal Exam: normal bowel sounds, non tender, soft Extremities: normal range of motion Martha Garcia N.P. May 09, 2017 10:40
[2017-05-09 11:23] VITALS: BP 112/57
--- NOTE | 2017-05-09 12:42 | Pulmonology Progress Note ---
Assessment/Plan Assessment/Plan IMPRESSION: 1. Partial small bowel obstruction. Resolved. SBFT is normal 2. Previous laparotomy. 3. Hypertension. 4. Headache. Head CT and cervical spine CT negative DISCUSSION: Gastroenterology consult noted. Advanced to full liquids. DC home Subjective Interval Events: Tolerating full liquid diet; cleared for discharge per GI Constitutional: Reports: no symptoms HEENT: Repors: no symptoms Respiratory: Reports: no symptoms Cardiovascular: Reports: no symptoms Gastrointestinal/Abdominal: Reports: no symptoms Genitourinary: Reports: no symptoms Neurologic: Reports: no symptoms Allergies: Coded Allergies: No Known Allergies (Unverified , 04/07/16) Objective Last 24 Hour Vital Signs Date Time Temp Pulse Resp B/P Pulse Ox O2 Delivery O2 Flow Rate FiO2 05/09/17 11:23 97.2 72 15 112/57 100 Room Air 05/09/17 08:42 79 126/69 05/09/17 08:13 97.2 79 16 126/69 100 Room Air 05/09/17 04:47 97.3 67 20 154/82 97 Room Air 05/09/17 00:34 98.2 76 20 164/89 97 Room Air 05/08/17 20:36 97.9 73 20 137/75 90 Room Air 05/08/17 16:00 97.3 74 18 125/76 99 Room Air Intake and Output 05/08/17 05/09/17 19:00 07:00 Intake Total 785 ml 550 ml Balance 785 ml 550 ml Intake Oral 360 ml IV Total 425 ml 550 ml # Voids 2 3 # Bowel Movements 2 General Appearance: no acute distress HEENT: normocephalic Respiratory/Chest: chest wall non-tender, lungs clear Cardiovascular: normal peripheral pulses, normal rate Abdomen: normal bowel sounds, soft, non tender Extremities: no cyanosis Laboratory Tests 05/09/17 05:25: White Blood Count 7.9, Red Blood Count 4.44, Hemoglobin 13.6, Hematocrit 40.4, Mean Corpuscular Volume 91, Mean Corpuscular Hemoglobin 30.6, Mean Corpuscular Hemoglobin Concent 33.6, Red Cell Distribution Width 11.5L, Platelet Count 168, Mean Platelet Volume 7.8, Neutrophils (%) (Auto) 47.9, Lymphocytes (%) (Auto) 41.0, Monocytes (%) (Auto) 6.9, Eosinophils (%) (Auto) 2.5, Basophils (%) (Auto ) 1.7, Sodium Level 137, Potassium Level 4.0, Chloride Level 97L, Carbon Dioxide Level 26, Anion Gap 14, Blood Urea Nitrogen 8, Creatinine 0.7, Estimat Glomerular Filtration Rate , Glucose Level 92, Calcium Level 9.0 Current Medications Medications (Trade) Dose Ordered Sig/Leilani Route PRN Reason Start Time Stop Time Status Last Admin Dose Admin Acetaminophen (Tylenol) 650 mg Q4H PRN ORAL Mild Pain/Temp > 100.5 05/06/17 10:00 06/05/17 09:59 05/09/17 04:59 Alprazolam (Xanax) 0.25 mg THREE TIMES A DAY ORAL 05/06/17 10:00 05/13/17 09:59 05/09/17 08:42 Atenolol (Tenormin) 25 mg DAILY ORAL 05/06/17 11:00 06/05/17 10:59 05/09/17 08:42 Clonidine HCl 0.1 mg 0.1 mg Q6H PRN ORAL For High Blood Pressure 05/06/17 14:00 06/05/17 13:59 05/08/17 00:20 Dextrose/ Electrolytes (D5NS W/KCl 20meq 1000ml) 1,000 ml @ 50 mls/hr Q20H IV 05/08/17 11:30 06/07/17 11:29 05/09/17 05:03 Hydromorphone HCl (Dilaudid) 1 mg Q4H PRN IVP For Pain 05/05/17 23:15 05/12/17 23:14 05/07/17 15:47 Dioni Crowley MD May 09, 2017 12:42
[2017-05-09] MEDS ORDERED: D5NS 1000ml IV ONE (14:29)
[2017-05-09] MEDS ORDERED: D5W 275ml ONE (14:29)
[2017-05-09] MEDS ORDERED: Tubing IV Secondary IV ONE (14:29)
--- NOTE | 2017-05-12 11:12 | Discharge Summary ---
Discharge Summary Hospital Course Date of Admission May 05, 2017 at 19:05 Date of Discharge May 09, 2017 at 14:30 Admitting Diagnosis small bowel obstruction RADHA Husain is a 77 year old female who was admitted on May 05, 2017 at 19: 05 for Small Bowel Obstruction Hospital Course dc summary #[id number] Discharge Medications Continued Medications: Alprazolam* (Xanax*) 0.5 Mg Tablet 0.5 MG PO BEDTIME PRN for For Anxiety, TAB Amantadine HCl (Amantadine) 100 Mg Capsule 100 MG GT TWICE A DAY, CAP Atenolol* (Tenormin*) 25 Mg Tablet 25 MG ORAL DAILY, TAB Cyanocobalamin (Vitamin B-12)* (Vitamin B-12*) 500 Mcg Tablet 500 MCG ORAL DAILY Omeprazole (Omeprazole) 40 Mg Capsule.dr 40 MG ORAL DAILY, CAP Discharge Condition Upon Discharge: stable Discharge Disposition Patient was discharged to Home (01) Discharge Diagnoses: Discharge Instructions Discharge Instructions Special Instructions I have been assigned to complete a D/C Summary on this account. I was not involved in the patient management Efraín Marshkassandra)Reshma NP May 12, 2017 11:12
--- NOTE | 2017-05-12 23:30 | Discharge Summary 2 SIG ---
DATE OF ADMISSION: 05/05/2017 DATE OF DISCHARGE: 05/09/2017 REASON FOR ADMISSION: 77-year-old female with a history of hypertension, Parkinson disease, and old CVA, was brought in by the daughter for evaluation of abdominal pain. Earlier that day, the patient had abdominal pain and emesis x 1. While in the emergency department, the patient denied any complaints. The patient reported normal bowel movements. She denied dysuria or hematuria. No fever. No chills. No chest pain. No shortness of breath. The patient had a history of similar episodes in the past. CT of the abdomen and pelvis revealed possible small bowel obstruction. The patient was afebrile. The patient was admitted for further management. ADMITTING DIAGNOSES: 1. Small-bowel obstruction. 2. Abdominal pain. 3. Dehydration. 4. History of laparotomy. 5. Hypertension. HOSPITAL STAY: The patient was admitted. The patient was on the IV fluids. Initially, NG tube was placed for decompression, subsequently NG tube was discontinued. The patient was advanced to clear liquid diet. Follow up abdominal x-ray and small-bowel follow-through revealed no evidence of small bowel obstruction. GI followed. Surgery evaluation initially requested, but was canceled because small-bowel obstruction resolved. CEA was within normal limits. The patient had colonoscopy done about two years ago, which was stable. The patient undergone CT of the head, which was negative for any acute intracranial pathology, but revealed old lacunar infarct. CT of the C-spine revealed no acute changes or significant abnormalities. Blood pressure was managed with beta-ayah and was stable. Home medications were resumed. The patient was stable for discharge home and follow up with the primary medical doctor. DISCHARGE DIAGNOSES: 1. Partial small bowel obstruction. 2. Abdominal pain, resolved. 3. Dehydration. 4. History of laparotomy. 5. Hypertension. 6. Parkinson disease. DISCHARGE MEDICATIONS: See medication reconciliation list. DISCHARGE INSTRUCTION: The patient was discharged home. Follow up with the primary medical doctor. Dioni Crowley M.D. I have been assigned to dictate discharge summary on this account and I was not involved in the patient's management. Reshma Kenny N.P. (Vanchtein) DR: MORALES JOB#: [id number] CC: CAITLYN
== END 2017-05-09 14:30 | disposition home or self-care (01) | DRG 388 ==
LOC: ENRESERVTM → ENRESERVDT → EMR 15:40 → 4E 19:05 → EDBEDREQ 20:18
DX: K56.60 Unspecified intestinal obstruction (principal); E43 Unspecified severe protein-calorie malnutrition; G20 Parkinson's disease; E86.0 Dehydration; Z68.1 Body mass index [BMI] 19.9 or less, adult; I10 Essential (primary) hypertension; Z86.73 Personal history of transient ischemic attack (TIA), and cerebral infarction without residual deficits; R51 Headache
CPT/HCPCS: 36415; 70450; 72125; 74020; 74177; 74250; 80048; 80053; 81003; 82378; 83690; 83735; 84100; 84484; 85007; 85025; 87081; 93005; J2405; J8499

== ENCOUNTER 2019-01-14 13:29 | Emergency (ER) | payer MEDICARE ==
[~2019-01-14] VITALS: Ht 162.6 cm; Wt 54.0 kg
[~2019-01-14 13:29] MED LIST changes: +SYMMETREL100 MG GT; +VITAMIN B-12500 MCG ORAL
[2019-01-14] MEDS ORDERED: ZOLOFT25 MG ORAL (13:50)
[2019-01-14] MEDS ORDERED: ABILIFY2 MG ORAL (13:50)
--- NOTE | 2019-01-14 14:19 | NUR ---
ED Nurse Note: Room available at this time. Patient brought in by son due to constant cough x 2 weeks with chills. Reports no N/V or D. Able to tolerate oral intake without difficulty. Patient awake, alert, oriented x 3. Regular unlabored breathing noted. Ambulated to the room with steady gait. No SOB, dyspnea noted. Placed patient on monitoring manager.
--- NOTE | 2019-01-14 14:21 | NUR ---
ED Nurse Note: Provided mask.
[2019-01-14 15:00] VITALS: BP 98/59
[2019-01-14 15:04] LABS: APPEARANCE,URINE CLEAR; BILIRUBIN, URINE NEGATIVE (NEGATIVE); GLUCOSE, URINE (UA) NEGATIVE (NEGATIVE); KETONES,URINE NEGATIVE (NEGATIVE); LEUKOCYTE ESTERASE ,URINE 3+ (NEGATIVE); NITRITE,URINE NEGATIVE (NEGATIVE); PH,URINE 5 (4.5-8.0); PROTEIN,URINE 1+ (NEGATIVE); UROBILINOGEN,URINE NORMAL MG/DL (0.0-1.0)
[2019-01-14 15:09] LABS: COLOR,URINE YELLOW
--- NOTE | 2019-01-14 15:40 | Emergency Room Report ---
History of Present Illness General Chief Complaint: Upper Respiratory Illness Source: Patient Present Illness HPI This patient states that she has had 2 weeks of cough with white sputum production. She is also had chills. She denies shortness of breath or chest pain. She denies nausea or vomiting. She denies fever. She denies headache or neck pain. She did get her influenza vaccine. She has no other complaints. Allergies: Coded Allergies: No Known Allergies (Unverified , 04/07/16) Patient History Past Medical History: see triage record, HTN, other - HCV Social History: Denies: smoking, alcohol use, drug use Reviewed Nursing Documentation: PMH: Agreed; PSxH: Agreed Nursing Documentation-PMH Past Medical History: No History, Except For Hx Cardiac Problems: No Hx Hypertension: Yes Hx Pacemaker: No Hx Asthma: No Hx COPD: No Hx Diabetes: No Hx Cancer: No Hx Gastrointestinal Problems: Yes Hx Dialysis: No History Of Psychiatric Problem: Yes - depression Hx Neurological Problems: No Hx Cerebrovascular Accident: No Hx Seizures: No Hx Neurologic Surgery: No Hx Brain Shunt: No Review of Systems All Other Systems: negative except mentioned in HPI Physical Exam Vital Signs Date Time Temp Pulse Resp B/P (MAP) Pulse Ox O2 Delivery O2 Flow Rate FiO2 01/14/19 13:45 97.9 94 16 94/59 98 Room Air Sp02 EP Interpretation: reviewed, normal General Appearance: no apparent distress, alert, GCS 15, non-toxic Head: normocephalic, atraumatic Eyes: bilateral eye normal inspection, bilateral eye PERRL ENT: hearing grossly normal, normal pharynx, no angioedema, normal voice Neck: full range of motion, supple/symm/no masses Respiratory: chest non-tender, lungs clear, normal breath sounds, no respiratory distress, no retraction, no accessory muscle use, speaking full sentences Cardiovascular #1: regular rate, rhythm, no edema Gastrointestinal: normal bowel sounds, non tender, soft, non-distended, no guarding, no rebound Rectal: deferred Musculoskeletal: back normal, gait/station normal, normal range of motion, non- tender Neurologic: alert, oriented x3, responsive, motor strength/tone normal, sensory intact, speech normal Psychiatric: judgement/insight normal, memory normal, mood/affect normal, no suicidal/homicidal ideation Skin: normal color, no rash, warm/dry, well hydrated Medical Decision Making Diagnostic Impression: Primary Impression: Bronchitis ER Course This patient has a presentation consistent with bronchitis. However, given the patient's age and the length of symptoms of 2 weeks, I felt that I should treat the patient with a course of azithromycin to treat for an atypical bacterial infection. Overall, the patient is well-appearing and nontoxic. Laboratory workup was unremarkable and chest x-ray is clear. The patient does not have any respiratory distress and has a normal oxygen saturation. The patient and her son are instructed on very close return precautions and follow-up instructions. Laboratory Tests Test 01/14/19 14:45 01/14/19 15:50 Urine Color Yellow Urine Appearance Clear Urine pH 5 (4.5-8.0) Urine Specific [place] 1.015 (1.005-1.035) Urine Protein 1+ (NEGATIVE) H Urine Glucose (UA) Negative (NEGATIVE) Urine Ketones Negative (NEGATIVE) Urine Blood Negative (NEGATIVE) Urine Nitrite Negative (NEGATIVE) Urine Bilirubin Negative (NEGATIVE) Urine Urobilinogen Normal MG/DL (0.0-1.0) Urine Leukocyte Esterase 3+ (NEGATIVE) H Urine RBC 0-2 /HPF (0 - 2) Urine WBC 5-10 /HPF (0 - 2) H Urine Squamous Epithelial Cells Few /LPF (NONE/OCC) Urine Bacteria Few /HPF (NONE) Urine Hyaline Casts 0-2 /LPF (NONE) H Urine Mucus Few /LPF (NONE/OCC) H White Blood Count 5.4 K/UL (4.8-10.8) Red Blood Count 4.13 M/UL (4.20-5.40) L Hemoglobin 12.2 G/DL (12.0-16.0) Hematocrit 36.9 % (37.0-47.0) L Mean Corpuscular Volume 89 FL (80-99) Mean Corpuscular Hemoglobin 29.6 PG (27.0-31.0) Mean Corpuscular Hemoglobin Concent 33.2 G/DL (32.0-36.0) Red Cell Distribution Width 11.2 % (11.6-14.8) L Platelet Count 204 K/UL (150-450) Mean Platelet Volume 7.7 FL (6.5-10.1) Neutrophils (%) (Auto) 64.4 % (45.0-75.0) Lymphocytes (%) (Auto) 25.3 % (20.0-45.0) Monocytes (%) (Auto) 7.9 % (1.0-10.0) Eosinophils (%) (Auto) 1.4 % (0.0-3.0) Basophils (%) (Auto) 1.0 % (0.0-2.0) Sodium Level 134 MMOL/L (136-145) L Potassium Level 4.0 MMOL/L (3.5-5.1) Chloride Level 101 MMOL/L (98-107) Carbon Dioxide Level 25 MMOL/L (21-32) Anion Gap 8 mmol/L (5-15) Blood Urea Nitrogen 25 mg/dL (7-18) H Creatinine 1.0 MG/DL (0.55-1.30) Estimate Glomerular Filtration Rate mL/min (>60) Glucose Level 92 MG/DL (74-106) Calcium Level 8.9 MG/DL (8.5-10.1) Total Bilirubin 0.3 MG/DL (0.2-1.0) Aspartate Amino Transferase (AST) 23 U/L (15-37) Alanine Aminotransferase (ALT) 17 U/L (12-78) Alkaline Phosphatase 57 U/L (46-116) Total Protein 7.8 G/DL (6.4-8.2) Albumin 3.8 G/DL (3.4-5.0) Globulin 4.0 g/dL Albumin/Globulin Ratio 0.9 (1.0-2.7) L Microbiology Date/Time Source Procedure Growth Status 01/14/19 14:45 Nasal Nares Influenza Types A,B Antigen ([facility]) - Final Complete EKG Diagnostic Results Rate: normal Rhythm: NSR ST Segments: no acute changes Rhythm Strip Diag. Results EP Interpretation: yes Rate: 70's Rhythm: NSR, no PVC's, no ectopy Chest X-Ray Diagnostic Results Chest X-Ray Diagnostic Results : Chest X-Ray Ordered: Yes # of Views/Limited/Complete: 1 View Indication: Other - cough EP Interpretation: Yes Interpretation: no consolidation, no effusion, no pneumothorax, no acute cardiopulmonary disease Impression: No acute disease Electronically Signed by: Kinsey Magana DO Last Vital Signs Date Time Temp Pulse Resp B/P (MAP) Pulse Ox O2 Delivery O2 Flow Rate FiO2 01/14/19 15:00 94 16 Room Air 01/14/19 15:00 97.9 98/59 98 Status: improved Disposition: HOME, SELF-CARE Condition: Improved Referrals: [facility],REFERRING (PCP) Kinsey Magana DO Jan 14, 2019 15:40
[2019-01-14 15:57] LABS: EOSINOPHILS % (AUTO) 1.4 % (0.0-3.0); HEMATOCRIT 36.9 % (37.0-47.0); HEMOGLOBIN 12.2 G/DL (12.0-16.0); LYMPHOCYTES % (AUTO) 25.3 % (20.0-45.0); MEAN CORPUSCULAR VOLUME 89 FL (80-99); MONOCYTES % (AUTO) 7.9 % (1.0-10.0); NEUTROPHILS % (AUTO) 64.4 % (45.0-75.0); PLATELET COUNT 204 K/UL (150-450); RED BLOOD COUNT 4.13 M/UL (4.20-5.40); RED CELL DISTRIBUTION WIDTH 11.2 % (11.6-14.8); WHITE BLOOD COUNT 5.4 K/UL (4.8-10.8)
[2019-01-14 16:04] VITALS: BP 110/87
[2019-01-14 16:04] LABS: ANION GAP 8 mmol/L (5-15); BLOOD UREA NITROGEN 25 mg/dL (7-18); CALCIUM 8.9 MG/DL (8.5-10.1); CARBON DIOXIDE 25 MMOL/L (21-32); CHLORIDE 101 MMOL/L (98-107); SODIUM 134 MMOL/L (136-145)
[2019-01-14 16:08] LABS: ALANINE AMINOTRANSFERASE 17 U/L (12-78); ALBUMIN 3.8 G/DL (3.4-5.0); ALBUMIN/GLOBULIN RATIO 0.9 (1.0-2.7); ALKALINE PHOSPHATASE 57 U/L (46-116); ASPARTATE AMINO TRANSFERASE 23 U/L (15-37); BILIRUBIN,TOTAL 0.3 MG/DL (0.2-1.0)
[2019-01-14] MEDS ORDERED: ZITHROMAX250 MG ORAL (16:36)
[2019-01-14 17:01] VITALS: BP 125/78
--- NOTE | 2019-01-14 17:02 | NUR ---
ED Nurse Note: pt cleared to be d/c per ERMD, pt discharge/aftercare instruction provided w/ prescription sent to pharmacy via electronically, pt education done via discussion and hand out, pt advised to follow up with pcp or return to ED if sx worsen or new sx develop, pt iv d/c and dressing applied, wristband removed, pt VSS, resp even and unlabored on RA, -n/v/d, accompanied by son. all belongings left with pt.
--- NOTE | 2019-01-14 17:37 | Diagnostic Imaging Report ---
Indication: Shortness of breath Technique: One view of the chest Comparison: 04/07/2016 Findings: Patient is rotated to the right. Lungs and pleural spaces are clear. Heart size is normal. There are prominent costochondral cartilage calcifications on the right. No significant interim change Impression: No acute process
== END 2019-01-14 17:02 | disposition home or self-care (01) ==
LOC: EMR 14:29
DX: J40 Bronchitis, not specified as acute or chronic (principal); I10 Essential (primary) hypertension; F32.9 Major depressive disorder, single episode, unspecified
CPT/HCPCS: 36415; 71045; 80053; 81003; 85025; 86710; 93005; 96360; 99284